=== PATIENT | male | born 1985 | race Caucasian/White ===

== ENCOUNTER 2017-06-26 16:59 | Emergency (ER) | payer SELFPAY ==
[2017-06-26] MEDS ORDERED: fentaNYL 100 MCG/2 ML INJ IVP ONE (17:54)
[2017-06-26] MEDS ORDERED: NS 1,000 ML IV ONE (17:54)
[2017-06-26] MEDS ORDERED: fentaNYL 100 MCG/2 ML INJ ONE (17:54)
--- NOTE | 2017-06-26 17:58 | EDPHY ---
H & P Stated Complaint: l shoulder dislocation(has been out approx 15 times) HPI/ROS: CHIEF COMPLAINT: Left shoulder dislocation HISTORY OF PRESENT ILLNESS: Patient complains of acute left shoulder pain. He said he was sleeping with his hands forward, under his face, lying prone. He woke with severe pain in the left shoulder. His shoulder. Dislocated to him. He has done this several times in the past, most recently this morning. He actually had no problems in several years until he fell last week. Since then he has had recurrent pain in the shoulder that he feels is either dislocating or nearly dislocating. No numbness in the affected extremity does have some paresthesia. No head injury. No chest pain. No other associated complaints or modifying factors. PRIOR ORTHO INJURIES: Recurrent left shoulder dislocation. Status post labral repair in [place] ESTABLISHED ORTHOPEDIST: None locally. Up prior orthopedic care in [place] REVIEW OF SYSTEMS: Ten systems reviewed and are negative unless otherwise noted in the HPI EXAMINATION General Appearance: Alert, no distress Cardiovascular: Pulses normal throughout. Symmetric radial pulses 2+ Brisk cap refill Neurological: A&O, sensory symmetric, strength symmetric in the wrist. Sensory intact in the left radial Skin: Warm and dry, no rash. No petechiae or purpura Extremities: Severe tenderness of the left shoulder. Step-off deformity of the left shoulder suggesting dislocation. Range of motion of the left wrist is intact range of motion of the shoulder not tested due to pain. Psychiatric: Mood and affect normal DIFFERENTIAL DIAGNOSES: Including but not limited to shoulder dislocation, fracture, sprain, strain, SLAP tear MDM: 5:50 p.m. Acute dislocation of the left shoulder. There is paresthesia but no anesthesia. No obvious fracture on the x-ray as read by me. I have administered lidocaine into the affected shoulder. Proceed with line placement , IV fluid and IV fentanyl for reduction. He is in no acute distress. 6:20 p.m. Left shoulder was reduced successfully without procedural sedation. This was done with lidocaine injection into the joint and fentanyl IV. Neurovascular intact distally. He is feeling significantly better post reduction. X-ray has been ordered. 6:35 p.m. X-ray confirm successful reduction of the left shoulder dislocation. No obvious fracture. He remains neurovascular intact. He is in a sling and swath. Discharged home with mandatory orthopedic follow-up. Nonweightbearing to left upper extremity until seen by Orthopedics. Pain medication p.r.n. as needed. ER precautions discussed. He is discharged home stable condition, neurovascular intact. 7:09 p.m. X-ray has been read as possible Bankart lesion. I discussed this with the patient. Given the fact that he has had several dislocations it is unlikely that this was done today. He also feels that this occurred with his 1st dislocation several years ago. Nonetheless, he is aware of this possible finding. He will follow up with Orthopedics definitively. PROCEDURE: Closed reduction of left shoulder Consent: Verbal Location: Left shoulder Anesthesia: Fentanyl IV 150 mcg, intra-articular lidocaine wound, 1% plain 7 mL Procedure: Time-out was performed. The left shoulder was reduced with traction and counter traction without difficulty. This was done without procedural sedation. He was awake alert the entire time. Tolerated well. Feeling significantly better postprocedure. Complications: None Post-reduction film: Confirms reduction ED Precautions: Worsening pain. Erythema, edema, cyanosis, pallor, paresthesia or anesthesia. SUPERVISION: This patient was independently evaluated without direct examination by the attending physician. Case was discussed with attending physician. Source: Patient Exam Limitations: No limitations - Personal History Current Tetanus/Diphtheria Vaccine: Unsure - Medical/Surgical History Hx Asthma: No Hx Chronic Respiratory Disease: No Hx Diabetes: No Hx Cardiac Disease: No Hx Renal Disease: No Hx Cirrhosis: No Hx Alcoholism: No Hx HIV/AIDS: No Hx Splenectomy or Spleen Trauma: No Other PMH: l shoulder dislocated - Social History Smoking Status: Current some day smoker Constitutional: Initial Vital Signs Temperature (C) 98.8 F 06/26/17 17:12 Heart Rate 66 06/26/17 17:12 Respiratory Rate 18 06/26/17 17:12 Blood Pressure 124/79 H 06/26/17 17:12 O2 Sat (%) 99 06/26/17 17:12 O2 Delivery Mode Room Air Allergies/Adverse Reactions: oseltamivir [From Tamiflu] Allergy (Verified 06/26/17 17:11) Home Medications: Medication Instructions Recorded Lexapro 06/26/17 oxyCODONE HCL/ACETAMINOPHEN 1 each PO Q4-6PRN PRN #13 tablet 06/26/17 [Percocet 5-325 mg Tablet] Medical Decision Making - Diagnostics Imaging Results: Imaging Impressions Shoulder X-Ray 06/26/17 17:28 Impression: Anterior left shoulder dislocation. Shoulder X-Ray 06/26/17 18:20 Impression: 1. No residual dislocation. 2. Possible Hill-Sachs and Bankart deformities. - Data Points Medications Given: Discontinued Medications Fentanyl (Sublimaze) 150 mcg IVP EDNOW ONE Stop: 06/26/17 17:55 Last Admin: 06/26/17 18:11 Dose: 150 mcg Sodium Chloride (Ns) 1,000 mls @ 0 mls/hr IV ONCE ONE; Wide Open PRN Reason: Protocol Stop: 06/26/17 17:55 Last Admin: 06/26/17 18:07 Dose: 1,000 mls Departure - Departure Disposition: Home, Routine, Self-Care Clinical Impression: Recurrent dislocation, left shoulder Condition: Good Instructions: Shoulder Dislocation (ED) Additional Instructions: 1. Nonweightbearing on the left upper extremity until cleared by Orthopedics 2. Sling in place at all times while awake. Removed twice daily for gravity only range of motion of the elbow Referrals: NONE *PRIMARY CARE P,. [Primary Care Provider] - As per Instructions Luis Higgins MD [Medical Doctor] - As per Instructions Prescriptions: oxyCODONE HCL/ACETAMINOPHEN [Percocet 5-325 mg Tablet] 1 each PO Q4-6PRN PRN # 13 tablet PRN Reason: Pain, Breakthrough
[2017-06-26 19:14] VITALS: TEMP 98.4
[2017-06-26 20:12] VITALS: BP 125/82; PULSE 53; RESP 16; O2SAT 99
== END 2017-06-26 20:08 | disposition home or self-care (01) ==
PROC: 0RSKXZZ Reposition Left Shoulder Joint, External Approach (ICD-10-PCS; principal; 2017-06-26)
DX: M24.412 Recurrent dislocation, left shoulder (principal); F17.200 Nicotine dependence, unspecified, uncomplicated
CPT/HCPCS: 96374; A4565; J3010